=== PATIENT | female | born 1975 | race African-American/Black ===

== ENCOUNTER 2017-03-07 06:09 | Emergency (ER) | payer MEDICARE ==
[~2017-03-07] VITALS: Ht 167.6 cm; Wt 90.9 kg
[~2017-03-07 06:09] MED LIST: ACETTAB3 PO; ADVAIR DISK1 INH; ALBUTEROL1 IN; ATENOL/CHLOR1 TA1 OR; ATENOLOL100 MG PO; ATENOLOL50 MG PO; CELEBREX100 MG PO; CHLORTHALID25 MG OR; COMBIVENT IN; CRESTOR20 MG PO; CYCLOBENZAPRINE5 MG OR; CYMBALTA30 MG PO; EQL IBUPROFEN200 MG OR; FIORICET PO; GABAPENTIN400 MG PO; LORTAB 10 PO; LORTAB 1010 MG OR; LOVASTATIN20 MG PO; NORCO1 TAB PO; PANTOPRAZOLE SO40 MG OR; PEPCID20 MG PO; PHENERGAN25 MG/TAB PO; PLAVIX75 MG PO; PREDNISONE10 MG PO; RISPERDAL1 M1 OR; SINGULAIR PO; VALIUM5 MG OR; XYZAL5 MG PO
[2017-03-07 07:40] LABS: URINE BILIRUBIN - DIPSTICK NEGATIVE (NEGATIVE); URINE BLOOD DIPSTICK TRACE-INTACT (NEGATIVE); URINE CLARITY CLEAR; URINE COLOR YELLOW; URINE GLUCOSE - DIPSTICK NEGATIVE (NEGATIVE); URINE KETONE NEGATIVE (NEGATIVE); URINE LEUK ESTERASE NEGATIVE (Negative); URINE NITRITE - DIPSTICK NEGATIVE (Negative); URINE PROTEIN - DIPSTICK NEGATIVE (NEG-TRACE); URINE UROBILINOGEN - DIPSTICK 0.2 E.U./dL (0.2)
[2017-03-07 07:42] LABS: HEMATOCRIT 40.4 % (37.0-47.0); HEMOGLOBIN 13.5 g/dl (12.0-16.0); IMMATURE GRANULOCYTES 0.2 % (0.0-1.0); MEAN CELL VOLUME 94.2 fL CALC (80.0-100.0); MEAN CORPUSCULAR HGB 31.5 pG CALC (26.0-32.0); MEAN CORPUSCULAR HGB CONC 33.4 g/L CALC (32.0-36.0); NEUT# 5.23 thou/uL (2.00-7.15); RED BLOOD COUNT 4.29 mill/uL (4.20-5.60); RED CELL DISTRI WIDTH 13.2 % (11.5-15.5)
[2017-03-07 07:44] LABS: BARBITURATES POSITIVE (NEGATIVE); COCAINE NEGATIVE (NEGATIVE); METHADONE NEGATIVE (NEGATIVE); OXCYCODONE NEGATIVE (NEGATIVE); TETRAHYDROCANNABIONOL NEGATIVE (NEGATIVE); TRICYLIC ANTIDEPRESSANTS NEGATIVE (NEGATIVE)
[2017-03-07 07:57] LABS: ALBUMIN 4.3 g/dL (3.2-5.0); ALKALINE PHOSPHATASE 51 u/l (38-126); ANION GAP 12 (6-22 (CALC)); BILIRUBIN, TOTAL 0.4 mg/dL (0.0-1.4); BUN 20 mg/dL (7-17); BUN/CREATININE RATIO 23 (12-20 (CALC)); CALCIUM 9.4 mg/dL (8.4-10.2); CARBON DIOXIDE 28 mmol/l (22-30); CHLORIDE 103 mmol/l (95-108); CREATININE 0.9 mg/dL (0.5-1.0); GFR > 60 ML/MIN (>=60 (CALC)); GFR FOR AFR.AMER. > 60 ML/MIN (>=60 (CALC)); GLUCOSE 97 mg/dL (65-105); POTASSIUM 3.3 mmol/l (3.5-5.1); SGOT/AST 15 u/l (14-36); SGPT/ALT 35 u/l (9-52); SODIUM 140 mmol/l (137-146); TOTAL PROTEIN 7.1 g/dL (6.3-8.2)
[2017-03-07 08:09] LABS: MYOGLOBIN 22 ng/mL (0 - 62)
[2017-03-07 08:54] VITALS: BP 122/80
== END 2017-03-07 09:04 | disposition home or self-care (01) ==
LOC: ED 06:09
PROVIDERS: Emergency Medicine
DX: R00.2 Palpitations (principal); I10 Essential (primary) hypertension; Z86.73 Personal history of transient ischemic attack (TIA), and cerebral infarction without residual deficits; R52 Pain, unspecified